=== PATIENT | female | born 1980 | race Caucasian/White ===

== ENCOUNTER 2025-01-23 22:01 | Emergency (ER) | payer SELFPAY ==
[2025-01-23 22:08] VITALS: BP 126/81; PULSE 73; TEMP 36.6; O2SAT 98; BMI 31.0
--- OUTSIDE RECORDS SUMMARY | 2025-01-23 22:08 | XMS_ITS | Clinical Summary ---
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 Last address used for calculation Not on file 07/28/2020 Comments Unknown Sex and Gender Information Value Date Recorded Sex Assigned at Not on file Legal Sex Female 10:23 AM EST Gender Identity Not on file Sexual Orientation Not on file Plan of Treatment Health Maintenance Due Date Last Done Comments Anxiety Screening 2000 Depression Screening 2000 HIV Screening 2000 Hepatitis C Screening 2000 DTaP,Tdap,Td Vaccine (1 - Tdap) 2001 Hepatitis B Vaccine (1 of 3 - 19+ 3-dose series) 05/25 Cervical Cancer Screening 2003 Mammogram Screening 2022 Covid-19 Vaccine ( - season) 2024 Influenza Vaccine (Season Ended) 2025 Insurance MMO [employer] P[employer]
--- NOTE | 2025-01-23 22:25 | ED_ITS ---
HPI - Dental/Oral General Chief complaint: Dental/Oral Stated complaint: DENTAL ISSUE Time Seen by Provider: 01/23/25 22:22 Source: patient Mode of arrival: walk-in History of Present Illness HPI Narrative: presents complaining of dental pain for one week. Increased pain tonight.No fever. Does not have dental insurance and not able to see a dentist Teeth map: 2 1. dental caries/abscess . mild focal swelling Related Data Home Medications ?Medication ?Instructions ?Recorded ?Confirmed No Known Home Medications 01/23/2503/12 Allergies Allergy/AdvReac Type Severity Reaction Status Date / Time No Known Drug Allergies Allergy Verified 01/23/25 22:12 Review of Systems 2 ROS0 Status of ROS 10 or more systems reviewed and unremark able except as noted in history and below PFSH PFSH Social History Little interest or pleasure in doing things: not at all Feeling down, depressed, or hopeless: not at all Exam Constitutional Vital Signs, click to edit/add: Last Vital Signs Temp 97.9 F 01/23/25 22:08 Pulse 73 01/23/25 22:08 Resp 18 01/23/25 22:08 BP 126/81 01/23/25 22:08 Pulse Ox 98 01/23/25 22:08 O2 Del Method Room Air 01/23/25 22:08 Common normals: no apparent distress, average body habitus, oriented x3, no limitations, healthy appearing, alert and well nourished [facility] Common normals: normocephalic and head/scalp atraumatic Other: left lower posterior dental caries and associated swelling about the tooth Eye Common normals: PERRL and EOMs intact bilaterally Respiratory Common normals: normal respiratory effort, no retractions, no use of accessory muscles and clear to auscultation bilaterally Cardio Common normals: regular rate, regular rhythm, S1 normal heart sound and S2 normal heart sound Extremity Common normals: normal to inspection and full ROM Neuro Common normals: oriented x3, CN's II-XII intact bilaterally, moves all extremities and no focal motor deficits Psych Appearance: grossly normal Course Vital Signs Vital signs: Vital Signs Temperature 97.9 F 01/23/25 22:08 Pulse Rate 73 01/23/25 22:08 Respiratory Rate 18 01/23/25 22:08 Blood Pressure 126/81 01/23/25 22:08 Pulse Oximetry 98 01/23/25 22:08 Oxygen Delivery Method Room Air 01/23/25 22:08 Temperature 97.9 F 01/23/25 22:08 Pulse Rate 73 01/23/25 22:08 Respiratory Rate 18 01/23/25 22:08 Blood Pressure 126/81 01/23/25 22:08 Pulse Oximetry 98 01/23/25 22:08 Oxygen Delivery Method Room Air 01/23/25 22:08 MDM - Dental/Oral MDM Narrative Medical decision making narrative: presents with dental pain and has early abscess . Complains of increasing pain . no fever . Informed of the findings and plan to treat with a course of antibiotics. Given dose of Amoxicillin and discharged home in stable condition Discharge Plan Discharge Chief Complaint: Dental/Oral Clinical Impression: Dental caries, Dental abscess Patient Disposition: Home, Self-Care Prescriptions / Home Meds: No Action No Known Home Medications Print Language: Solomon Islander Instructions: Dental Abscess (ED) Additional Instructions: follow up with your Dentist next wek Referrals: OBEY SINGH [Primary Care Provider, Family Practice] - 1 week
--- NOTE | 2025-01-23 22:35 | PC.NURSE ---
slight swelling to left lower teeth
[2025-01-23] MEDS: AMOXICILLIN 500 MG CAPSULE 1000 MG PO (22:40)
== END 2025-01-23 22:44 | disposition home or self-care (01) ==
PROVIDERS: Emergency Provider Internal Medicine; PCP Family Medicine
DX: K04.7 Periapical abscess without sinus (principal); K02.9 Dental caries, unspecified
CPT/HCPCS: 99283

== ENCOUNTER 2025-07-17 20:40 | Emergency (ER) | payer SELFPAY ==
[2025-07-17 20:44] VITALS: BP 156/103; PULSE 99; TEMP 36.8; O2SAT 100; BMI 31.9
--- OUTSIDE RECORDS SUMMARY | 2025-07-17 21:08 | XMS_ITS | Clinical Summary ---
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 Unavailable Primary Care Provider Unavailabl e Social History Tobacco UseTypesPacks/DayYears UsedDateSmoking Tobacco: Never Assessed CommentsUnknownSex and Gender InformationValueDate RecordedSex Assigned at Not on fileLegal VfzVqarjf68/15/2023 7:25 PM EDTGender SltyhyifVngtpx38/15/2023 7:25 PM EDTSexual OrientationNot on file Last Filed Vital Signs Vital SignReadingTime TakenCommentsBlood Wdkoknhu719/7201 12:00 PM EST Pulse--Temperature--Respiratory Rate--Oxygen Saturation--Inhaled Oxygen Concentration--Rujlee23.1 kg (176 lb 9.6 oz)08/23/2018 12:00 PM NIOMizdei947.5 cm (5' 4.75 )08/23/2018 12:00 PM ESTBody Mass Index29.62008/23/2018 12:00 PM EST Plan of Treatment Not on file
--- NOTE | 2025-07-18 05:20 | ED.GENADUL1 ---
HPI HPI - General Adult General Chief complaint: Psychiatric Symptoms Stated complaint: DENTAL ISSUE/ALTERED MENTAL STATUS Time Seen by Provider: 07/17/25 20:43 Source: patient Mode of arrival: walk-in History of Present Illness HPI narrative: Patient is a 45-year-old female presenting to the emergency department requesting to speak to a mental health counselor. Patient states she is stressed out at work and is having anger issues because of this. She denies history of prior psychiatric additions. She denies suicidal or homicidal ideation. She denies visual auditory hallucinations. She is otherwise asymptomatic without chest pain, shortness of breath, nausea, vomiting, abdominal pain, fevers, or chills. Related Data Home Medications ?Medication ?Instructions ?Recorded ?Confirmed No Known Home Medications 07/17/25 07/17/25 Allergies Allergy/AdvReac Type Severity Reaction Status Date / Time No Known Drug Allergies Allergy Verified 07/17/25 20:52 Review of Systems ROS Status of ROS 10 or more systems reviewed and unremarkable except as noted in history and below PFSH PFSH Social History Little interest or pleasure in doing things: not at all Feeling down, depressed, or hopeless: not at all Exam Narrative Exam Narrative: CONSTITUTIONAL: Well-appearing, not responding to internal stimuli, normal affect, answering questions and following commands appropriately SKIN: Was warm and dry. EYES: Sclerae white. EARS, NOSE, THROAT: Moist oral mucosa. RESPIRATORY: Nonlabored respirations. CARDIOVASCULAR: Normal rate and regular rhythm. There is no S3, S4, murmur, rub. GASTROINTESTINAL: Abdomen is nondistended. MUSCULOSKELETAL: No peripheral edema. NEUROLOGIC: Patient is awake and alert. Ambulates with a steady gait. Constitutional Vital Signs, click to edit/add: Last Vital Signs Temp 98.2 F 07/17/25 20:44 Pulse 99 H 07/17/25 20:44 Resp 18 07/17/25 20:44 BP 156/103 H 07/17/25 20:44 Pulse Ox 100 07/17/25 20:44 O2 Del Method Room Air 07/17/25 20:44 Course Vital Signs Vital signs: Vital Signs Temperature 98.2 F 07/17/25 20:44 Pulse Rate 99 H 07/17/25 20:44 Respiratory Rate 18 07/17/25 20:44 Blood Pressure 156/103 H 07/17/25 20:44 Pulse Oximetry 100 07/17/25 20:44 Oxygen Delivery Method Room Air 07/17/25 20:44 Temperature 98.2 F 07/17/25 20:44 Pulse Rate 99 H 07/17/25 20:44 Respiratory Rate 18 07/17/25 20:44 Blood Pressure 156/103 H 07/17/25 20:44 Pulse Oximetry 100 07/17/25 20:44 Oxygen Delivery Method Room Air 07/17/25 20:44 Medical Decision Making MDM Narrative Medical decision making narrative: Patient is a 45-year-old female presenting to the emergency department requesting to speak to a mental health counselor in regards to frustration at her workplace. She has a normal physical examination with normal vital signs. She is not in acute psychosis and she has no suicidal/homicidal ideations. Patient was able to speak with a mental health counselor over the phone. She was given resources and they recommended outpatient follow-up. I do believe the patient is stable for discharge. Return precautions were given including any new or worsening symptoms. Patient understands and agrees to the plan. FINAL IMPRESSION: #Acute encounter for psychiatric evaluation DISPOSITION: Discharged home CONDITION: Good Discharge Plan Discharge Stand Alone Forms: Portal Instructions Chief Complaint: Psychiatric Symptoms Patient Disposition: Left Against Medical Advice Prescriptions / Home Meds: No Action No Known Home Medications Print Language: Telugu Referrals: OBEY SINGH [Primary Care Provider, Family Practice] - 1 week Discharge Date/Time: 07/17/25 21:42
== END 2025-07-17 21:42 | disposition left against medical advice (07) ==
LOC: ER 21:05
PROVIDERS: Emergency Provider Student in an Organized Health Care Education/Training Program; PCP Family Medicine
DX: Z53.29 Procedure and treatment not carried out because of patient's decision for other reasons (principal)
CPT/HCPCS: 99281